=== PATIENT | female | born 1950 | race Caucasian/White ===

== ENCOUNTER 2018-01-10 08:12 | Outpatient (CLI) | payer OTHER | END 2018-01-10 08:19 | disposition home or self-care (01) | LOC: SONOGRAMA 08:12 | DX: E21.0 Primary hyperparathyroidism (principal); R22.9 Localized swelling, mass and lump, unspecified ==

== ENCOUNTER 2024-11-04 10:36 | Emergency (ER) | payer OTHER ==
[~2024-11-04] VITALS: Ht 157.5 cm; Wt 87.5 kg
[2024-11-04] MEDS ORDERED: SYNTHROID150 MCG PO (11:08)
[2024-11-04] MEDS ORDERED: ZESTRIL40 M1 (11:08)
[2024-11-04] MEDS ORDERED: GUAIFENESIN/DEXTROMETHORPHAN 10ML BLIST.PACK PO ONE (11:45)
[2024-11-04] MEDS ORDERED: ALBUTEROL SULFATE 3 ML/2.5 MG AMPUL.NEB IH SCH (11:45)
[2024-11-04] MEDS ORDERED: ACETAMINOPHEN 500 MG GEL..CAP PO ONE ×2 (11:45→11:54)
[2024-11-04] MEDS ORDERED: ALBUTEROL SULFATE 3 ML/2.5 MG AMPUL.NEB IH ONE (11:53)
[2024-11-04] MEDS ORDERED: GUAIFEN/DEXTROMETHORPHAN/PE 10 ML BLIST.PACK PO ONE (11:54)
[2024-11-04 12:12] LABS: ABG PH 7.389 (7.35-7.45); ABG PO2 79.3 mmHg (80-100); ABG pCO2 41.7 mmHg (35-45); BASE EXCESS -0.4 mmol/l; BICARBONATE 24.6 mmol/l (23-25); SaO2 95.4 %; Tco2 25.9 mmol/l
[2024-11-04 12:13] LABS: allen test SATISFACTORY; o2 21 %; puncture site RADIAL RIGHT
[2024-11-04 12:17] LABS: HEMOGLOBIN 13.5 g/dL (12.0-15.00); MEAN CELL VOLUME 87.8 fL (80.00-100.00); MEAN CORPUSCULAR HEMOGLOBIN 29.6 pg (27.00-32.0); MEAN CORPUSCULAR HGB CONC 33.7 g/dl (32.0-36.0); PLATELET COUNT 290 K/uL (150-450); RED BLOOD COUNT 4.55 M/uL (4.00-6.00); RED CELL DISTRIBUTION WIDTH 14.6 % (11.5-14.5)
[2024-11-04 12:48] LABS: ALBUMIN 3.6 gm/dL (3.4-5.0); BILIRUBIN TOTAL 0.46 mg/dL (0.3-1.2); CALCIUM 11.8 mg/dL (8.5-10.1); CREATININE SERUM 0.72 mg/dL (0.55-1.02); GFR 79.62; GLOBULINA 3.7 G/DL (2.4-3.5); POTASSIUM 4.71 mEq/L (3.5-5.1); TOTAL PROTEIN 7.3 gm/dL (6.4-8.2)
== END 2024-11-04 17:16 | disposition home or self-care (01) ==
LOC: ER 10:38
PROVIDERS: Emergency Medicine
DX: B34.9 Viral infection, unspecified (principal); J98.8 Other specified respiratory disorders; J45.909 Unspecified asthma, uncomplicated; Z20.822 Contact with and (suspected) exposure to COVID-19; Z88.1 Allergy status to other antibiotic agents; Z88.5 Allergy status to narcotic agent